=== PATIENT | male | born 1945 | race Caucasian/White ===

== ENCOUNTER 2017-05-04 10:09 | Outpatient (CLI) | payer MEDICARE ==
--- NOTE | 2017-05-04 11:09 | RAD ---
CHEST TWO VIEWS: History: Cough. Comparison: 05-09-13 FINDINGS: Cardiac silhouette and pulmonary vasculature are unremarkable. Elevation of the right hemidiaphragm is stable. There is no confluent airspace consolidation, pneumothorax, or pleural fluid evident. IMPRESSION: No active cardiopulmonary abnormalities are demonstrated. POS: [facility]
== END 2017-05-04 10:10 | disposition home or self-care (01) ==
LOC: SCSRAD 10:09
PROVIDERS: ATTEND Family Medicine
DX: C92.11 Chronic myeloid leukemia, BCR/ABL-positive, in remission (principal); R05 Cough
CPT/HCPCS: 71020

== ENCOUNTER 2021-02-09 10:31 | Outpatient (CLI) | payer MEDICARE ==
[2021-02-10 14:21] LABS: SARS-CoV-2 PCR by NAA Not Detected (NotDetected)
== END 2021-02-09 10:32 | disposition home or self-care (01) ==
LOC: LABBT 10:31
PROVIDERS: ATTEND Neurological Surgery
DX: Z01.812 Encounter for preprocedural laboratory examination (principal); G95.9 Disease of spinal cord, unspecified; Z20.822 Contact with and (suspected) exposure to COVID-19
CPT/HCPCS: U0003; U0005

== ENCOUNTER 2021-03-25 14:51 | Outpatient (CLI) | payer MEDICARE ==
[2021-03-25 16:19] LABS: Hemoglobin 16.3 g/dL (13.5-17.5); Mean Corpuscular HGB CONC 33.1 g/dL (32.0-36.0); Mean Corpuscular Hemoglobin 32.2 pg (27.0-33.0); Mean Corpuscular Volume 97.2 fl (81.2-95.1); Mean Platelet Volume 10.1 fl (7.4-10.4); Platelet Count 302 10x3/uL (150-450); RBC Distribution Width 12.7 % (11.5-14.5); Red Blood Cell (RBC) Count 5.06 10x6/uL (4.32-5.72)
[2021-03-25 16:29] LABS: Anion Gap 14 mmol/L (10-20); BUN (Urea Nitrogen) 27 mg/dL (8.4-25.7); Calc. Creatinine Clearance 0 mL/min (70-130); Calcium 10.1 mg/dL (7.8-10.44); Carbon Dioxide 25 mmol/L (23-31); Chloride 106 mmol/L (98-107); Glucose 94 mg/dL (83-110); Potassium 5.1 mmol/L (3.5-5.1); Sodium 140 mmol/L (136-145)
[2021-03-26 12:27] LABS: SARS-CoV-2 PCR by NAA Not Detected (NotDetected)
== END 2021-03-25 14:52 | disposition home or self-care (01) ==
LOC: LABBT 14:51
PROVIDERS: ATTEND Neurological Surgery
DX: Z01.812 Encounter for preprocedural laboratory examination (principal); M48.04 Spinal stenosis, thoracic region; Z20.822 Contact with and (suspected) exposure to COVID-19
CPT/HCPCS: 80048; 85027; U0003; U0005

== ENCOUNTER 2021-04-03 09:15 | Emergency (ER) | payer MEDICARE ==
[2021-04-03 12:37] LABS: #Basophils 0.1 thou/uL (0.0-0.2); #Eosinphils 0.2 thou/uL (0.0-0.7); #Lymphocytes 2.3 thou/uL (1.20-3.40); #Monocytes 1.6 thou/uL (0.11-0.59); #Neutrophils 9.4 thou/uL (1.40-6.50); %Basophils 0.4 % (0.0-1.0); %Eosinophils 1.8 % (0.0-10.0); %Monocytes 11.8 % (0.0-10.0); Hemoglobin 15.1 g/dL (14.0-18.0); Mean Corpuscular HGB CONC 34.2 g/dL (32.0-36.0); Mean Corpuscular Hemoglobin 33.9 pg (27.0-31.0); Mean Corpuscular Volume 99.2 fL (78.0-98.0); Mean Platelet Volume 8.4 fL (7.4-10.4); Platelet Count 258 thou/uL (130-400); Red Blood Cell (RBC) Count 4.45 mill/uL (4.70-6.10); White Blood Cell (WBC) Count 13.6 thou/uL (4.8-10.8)
[2021-04-03 13:04] LABS: ALT (SGPT) 10 U/L (8-55); AST (SGOT) 23 U/L (5-34); Albumin 3.8 g/dL (3.4-4.8); Alkaline Phosphatase 61 U/L (40-110); Anion Gap 11 mmol/L (10-20); BUN (Urea Nitrogen) 33 mg/dL (8.4-25.7); Bilirubin, Total 1.4 mg/dL (0.2-1.2); Calc. Creatinine Clearance 0 mL/min (70-130); Calcium 9.8 mg/dL (7.8-10.44); Carbon Dioxide 32 mmol/L (23-31); Chloride 99 mmol/L (98-107); Globulin 2.8 g/dL (2.4-3.5); Glucose 96 mg/dL (83-110); Lipase 25 U/L (8-78); Potassium 5.3 mmol/L (3.5-5.1); Protein, Total 6.6 g/dL (5.8-8.1); Sodium 137 mmol/L (136-145)
== END 2021-04-03 15:10 | disposition home or self-care (01) ==
LOC: ERS 09:15
DX: R53.1 Weakness (principal); I25.2 Old myocardial infarction; Z86.73 Personal history of transient ischemic attack (TIA), and cerebral infarction without residual deficits; Z87.891 Personal history of nicotine dependence; Z79.82 Long term (current) use of aspirin; Z79.899 Other long term (current) drug therapy
CPT/HCPCS: 36415; 74018; 80053; 83690; 83880; 85025

== ENCOUNTER 2021-04-09 23:07 | Inpatient (IN) | payer MEDICARE ==
[2021-04-10] MEDS ORDERED: Ondansetron PF 4 MG/2 ML Vial IVP PRN (02:10)
[2021-04-10] MEDS ORDERED: hydrALAZINE 20 MG/ML VIAL SLOW IVP PRN (02:22)
[2021-04-10] MEDS ORDERED: Dexamethasone 4 mg/ml Vial SLOW IVP SCH (02:45)
[2021-04-10] MEDS ORDERED: Aspirin 81 mg Enteric Coated Tablet PO SCH (03:15)
[2021-04-10] MEDS: Sodium Chloride 0.9% 1,000 ML IV SCH ×2 (04:20→17:56)
[2021-04-10 05:59] LABS: Mean Corpuscular HGB CONC 32.6 g/dL (32.0-36.0); Mean Corpuscular Hemoglobin 32.1 pg (27.0-31.0); Mean Corpuscular Volume 98.4 fL (78.0-98.0); Mean Platelet Volume 7.6 fL (7.4-10.4); Platelet Count 287 thou/uL (130-400); RBC Distribution Width 12.1 % (11.5-14.5); Red Blood Cell (RBC) Count 4.69 mill/uL (4.70-6.10); White Blood Cell (WBC) Count 11.6 thou/uL (4.8-10.8)
[2021-04-10 06:02] LABS: Hemoglobin A1c 5.6 % (4.0-6.0)
[2021-04-10 06:18] LABS: Band 2 % (5-11); Eosinophils 2 % (0-10); Lymphocytes 19 % (21-51); MDiff Complete? YES; Monocytes 12 % (0-10); Neutrophil 65 % (42-75)
[2021-04-10 06:21] LABS: ALT (SGPT) 29 U/L (8-55); AST (SGOT) 45 U/L (5-34); Albumin 3.4 g/dL (3.4-4.8); Alkaline Phosphatase 63 U/L (40-110); Anion Gap 11 mmol/L (10-20); BUN (Urea Nitrogen) 19 mg/dL (8.4-25.7); Bilirubin, Total 1.2 mg/dL (0.2-1.2); Calc. Creatinine Clearance 65 mL/min (70-130); Calcium 9.3 mg/dL (7.8-10.44); Carbon Dioxide 26 mmol/L (23-31); Chloride 103 mmol/L (98-107); Globulin 2.6 g/dL (2.4-3.5); Glucose 103 mg/dL (83-110); Potassium 4.1 mmol/L (3.5-5.1); Sodium 136 mmol/L (136-145)
[2021-04-10] MEDS ORDERED: Famotidine/PF 20 mg/2ml Vial SLOW IVP SCH (09:00)
[2021-04-10] MEDS: Dexamethasone 4 mg/ml Vial SLOW IVP SCH ×2 (11:36→18:13)
[2021-04-10] MEDS ORDERED: Clopidogrel Bisulfate 75 MG TAB PO SCH (17:45)
[2021-04-10] MEDS ORDERED: Nitroglycerin 0.4 MG TAB (25 Tab Bottle) SL PRN (18:36)
[2021-04-10] MEDS: Carvedilol 6.25 MG TAB PO SCH (20:56)
[2021-04-10] MEDS: Atorvastatin Calcium 40 MG TAB PO SCH (20:56)
[2021-04-10] MEDS: clonazePAM 0.5 MG TAB PO PRN (20:56)
[2021-04-11] MEDS: Dexamethasone 4 mg/ml Vial SLOW IVP SCH ×4 (01:16→17:48)
[2021-04-11] MEDS: Lorazepam 2 MG/ML VIAL SLOW IVP PRN ×2 (01:17→21:13)
[2021-04-11 05:11] LABS: Anion Gap 13 mmol/L (10-20); BUN (Urea Nitrogen) 24 mg/dL (8.4-25.7); Calc. Creatinine Clearance 64 mL/min (70-130); Calcium 9.7 mg/dL (7.8-10.44); Carbon Dioxide 25 mmol/L (23-31); Chloride 105 mmol/L (98-107); Glucose 166 mg/dL (83-110); Potassium 4.5 mmol/L (3.5-5.1); Sodium 138 mmol/L (136-145)
[2021-04-11] MEDS: Carvedilol 6.25 MG TAB PO SCH ×2 (09:32→21:13)
[2021-04-11] MEDS: Aspirin 81 mg Enteric Coated Tablet PO SCH (09:32)
[2021-04-11] MEDS: Clopidogrel Bisulfate 75 MG TAB PO SCH (09:33)
[2021-04-11] MEDS: Multivitamin W/ Minerals 1 TAB PO SCH (09:34)
[2021-04-11] MEDS: clonazePAM 0.5 MG TAB PO PRN (21:12)
[2021-04-11] MEDS: Atorvastatin Calcium 40 MG TAB PO SCH (21:13)
[2021-04-12] MEDS: Dexamethasone 4 mg/ml Vial SLOW IVP SCH ×4 (00:37→21:09)
[2021-04-12 06:31] LABS: Hemoglobin 14.6 g/dL (14.0-18.0); Mean Corpuscular HGB CONC 33.8 g/dL (32.0-36.0); Mean Corpuscular Hemoglobin 33.4 pg (27.0-31.0); Mean Corpuscular Volume 98.8 fL (78.0-98.0); Mean Platelet Volume 8.2 fL (7.4-10.4); Platelet Count 296 thou/uL (130-400); RBC Distribution Width 12.3 % (11.5-14.5); Red Blood Cell (RBC) Count 4.36 mill/uL (4.70-6.10)
[2021-04-12 06:44] LABS: Anion Gap 14 mmol/L (10-20); BUN (Urea Nitrogen) 34 mg/dL (8.4-25.7); Calc. Creatinine Clearance 55 mL/min (70-130); Calcium 9.3 mg/dL (7.8-10.44); Carbon Dioxide 25 mmol/L (23-31); Cardiac Risk 3.6 (Less than 4.5); Chloride 104 mmol/L (98-107); Cholesterol 150 mg/dl (< 200 Desired); Glucose 127 mg/dL (83-110); HDL Cholesterol 42 mg/dL (>60 Neg Risk); LDL Cholesterol, Calculated 91 mg/dL; Potassium 4.6 mmol/L (3.5-5.1); Sodium 138 mmol/L (136-145); Triglycerides 86 mg/dL (Less than 150)
[2021-04-12 06:47] LABS: Band 5 % (5-11); Lymphocytes 5 % (21-51); MDiff Complete? YES; Monocytes 3 % (0-10); Neutrophil 87 % (42-75)
[2021-04-12] MEDS: Clopidogrel Bisulfate 75 MG TAB PO SCH (08:11)
[2021-04-12] MEDS: Aspirin 81 mg Enteric Coated Tablet PO SCH (08:11)
[2021-04-12] MEDS: Multivitamin W/ Minerals 1 TAB PO SCH (08:11)
[2021-04-12] MEDS: Carvedilol 6.25 MG TAB PO SCH ×2 (08:11→21:09)
[2021-04-12] MEDS ORDERED: Sodium Chloride 0.9% 1,000 ML IV SCH (10:15)
[2021-04-12] MEDS ORDERED: Albuterol Sulfate 2.5 mg/3 ml Neb NEB PRN (13:14)
[2021-04-12] MEDS: Atorvastatin Calcium 40 MG TAB PO SCH (21:09)
[2021-04-12] MEDS: clonazePAM 0.5 MG TAB PO PRN (23:52)
[2021-04-13 06:09] LABS: Mean Corpuscular HGB CONC 33.2 g/dL (32.0-36.0); Mean Corpuscular Volume 99.6 fL (78.0-98.0); Mean Platelet Volume 8.2 fL (7.4-10.4); Platelet Count 301 thou/uL (130-400); RBC Distribution Width 12.3 % (11.5-14.5); Red Blood Cell (RBC) Count 4.22 mill/uL (4.70-6.10); White Blood Cell (WBC) Count 25.9 thou/uL (4.8-10.8)
[2021-04-13 06:24] LABS: Anion Gap 14 mmol/L (10-20); BUN (Urea Nitrogen) 41 mg/dL (8.4-25.7); Calc. Creatinine Clearance 58 mL/min (70-130); Calcium 9.1 mg/dL (7.8-10.44); Carbon Dioxide 24 mmol/L (23-31); Chloride 106 mmol/L (98-107); Glucose 150 mg/dL (83-110); Potassium 4.5 mmol/L (3.5-5.1); Sodium 139 mmol/L (136-145)
[2021-04-13 06:42] LABS: MDiff Complete? YES
[2021-04-13 06:43] LABS: Band 5 % (5-11); Lymphocytes 2 % (21-51); Monocytes 1 % (0-10); Neutrophil 92 % (42-75)
[2021-04-13] MEDS: Aspirin 81 mg Enteric Coated Tablet PO SCH (10:36)
[2021-04-13] MEDS: Clopidogrel Bisulfate 75 MG TAB PO SCH (10:37)
[2021-04-13] MEDS: Multivitamin W/ Minerals 1 TAB PO SCH (10:39)
[2021-04-13] MEDS: Carvedilol 6.25 MG TAB PO SCH ×2 (10:43→21:04)
[2021-04-13] MEDS: Dexamethasone 4 mg/ml Vial SLOW IVP SCH (10:46)
[2021-04-13] MEDS: clonazePAM 0.5 MG TAB PO PRN (21:04)
[2021-04-13] MEDS: Atorvastatin Calcium 40 MG TAB PO SCH (21:05)
[2021-04-13] MEDS: Lorazepam 2 MG/ML VIAL SLOW IVP PRN (23:54)
[2021-04-14] MEDS ORDERED: Nitroglycerin 0.4 MG TAB (25 Tab Bottle) SL PRN (08:30)
[2021-04-14] MEDS: Multivitamin W/ Minerals 1 TAB PO SCH (09:21)
[2021-04-14] MEDS: Lisinopril 10 MG TAB PO SCH ×2 (09:21→20:56)
[2021-04-14] MEDS: Aspirin 81 mg Enteric Coated Tablet PO SCH (09:21)
[2021-04-14] MEDS: Carvedilol 6.25 MG TAB PO SCH ×2 (09:21→20:55)
[2021-04-14] MEDS: Clopidogrel Bisulfate 75 MG TAB PO SCH (09:21)
[2021-04-14] MEDS ORDERED: Non-Formulary Item 1 EACH (Carvedilol [Coreg] 12.5 MG Tab) PO SCH (17:00)
[2021-04-14] MEDS: Atorvastatin Calcium 40 MG TAB PO SCH (20:55)
[2021-04-14] MEDS ORDERED: Mirtazapine 15 MG TAB PO SCH (21:00)
[2021-04-15 06:00] LABS: #Eosinphils 0.1 thou/uL (0.0-0.7); #Lymphocytes 2.1 thou/uL (1.20-3.40); #Monocytes 2.1 thou/uL (0.11-0.59); #Neutrophils 11.4 thou/uL (1.40-6.50); %Basophils 0.1 % (0.0-1.0); %Eosinophils 0.7 % (0.0-10.0); %Lymphocytes 13.7 % (21.0-51.0); %Monocytes 13.1 % (0.0-10.0); %Neutrophils 72.4 % (42.0-75.0); Hemoglobin 14.4 g/dL (14.0-18.0); Mean Corpuscular Hemoglobin 31.6 pg (27.0-31.0); Mean Corpuscular Volume 98.8 fL (78.0-98.0); Mean Platelet Volume 8.4 fL (7.4-10.4); Platelet Count 283 thou/uL (130-400); RBC Distribution Width 12.4 % (11.5-14.5); Red Blood Cell (RBC) Count 4.56 mill/uL (4.70-6.10); White Blood Cell (WBC) Count 15.7 thou/uL (4.8-10.8)
[2021-04-15 06:27] LABS: Troponin I 0.018 ng/mL (< 0.028)
[2021-04-15 06:29] LABS: ALT (SGPT) 13 U/L (8-55); AST (SGOT) 12 U/L (5-34); Albumin 3.1 g/dL (3.4-4.8); Alkaline Phosphatase 51 U/L (40-110); Anion Gap 12 mmol/L (10-20); BUN (Urea Nitrogen) 44 mg/dL (8.4-25.7); Bilirubin, Total 1.3 mg/dL (0.2-1.2); Calc. Creatinine Clearance 56 mL/min (70-130); Calcium 8.7 mg/dL (7.8-10.44); Carbon Dioxide 26 mmol/L (23-31); Chloride 106 mmol/L (98-107); Glucose 87 mg/dL (83-110); Magnesium 2.1 mg/dL (1.6-2.6); Potassium 4.6 mmol/L (3.5-5.1); Protein, Total 5.1 g/dL (5.8-8.1); Sodium 139 mmol/L (136-145)
[2021-04-15] MEDS: Aspirin 81 mg Enteric Coated Tablet PO SCH (10:49)
[2021-04-15] MEDS: Carvedilol 6.25 MG TAB PO SCH (10:51)
[2021-04-15] MEDS: Clopidogrel Bisulfate 75 MG TAB PO SCH (10:51)
[2021-04-15] MEDS: Lisinopril 10 MG TAB PO SCH (10:55)
[2021-04-15] MEDS: Multivitamin W/ Minerals 1 TAB PO SCH (10:56)
[2021-04-15 13:20] VITALS: BMI 27.6
[2021-04-15 15:43] VITALS: BP 151/94; TEMP 98.9
== END 2021-04-15 20:29 | DRG 65 ==
LOC: 3SE 04-10 00:39
PROVIDERS: ADMIT Internal Medicine; ATTEND Internal Medicine
DX: I63.89 Other cerebral infarction (principal); N17.9 Acute kidney failure, unspecified; C92.11 Chronic myeloid leukemia, BCR/ABL-positive, in remission; G81.94 Hemiplegia, unspecified affecting left nondominant side; Z20.822 Contact with and (suspected) exposure to COVID-19; R47.1 Dysarthria and anarthria; M48.04 Spinal stenosis, thoracic region; Z88.7 Allergy status to serum and vaccine; Z90.49 Acquired absence of other specified parts of digestive tract; I25.2 Old myocardial infarction; Z79.82 Long term (current) use of aspirin; Z79.899 Other long term (current) drug therapy; Z87.891 Personal history of nicotine dependence; N18.31 Chronic kidney disease, stage 3a; I12.9 Hypertensive chronic kidney disease with stage 1 through stage 4 chronic kidney disease, or unspecified chronic kidney disease; E78.5 Hyperlipidemia, unspecified; K21.9 Gastro-esophageal reflux disease without esophagitis; G47.00 Insomnia, unspecified; H53.2 Diplopia; R29.711 NIHSS score 11; R47.01 Aphasia; D72.829 Elevated white blood cell count, unspecified
CPT/HCPCS: 36415; 51701; 70450; 70496; 70498; 70551; 71045; 72125; 72128; 72131; 72146; 80048; 80053; 80061; 81003; 83036; 83735; 84484; 85007; 85025; 85027; 85610; 85730; 93005; 93010; 93306; 94640; 94760; 96374; J1100; J2060; J7050; J7611; S0028; U0002

== ENCOUNTER 2022-01-31 07:49 | Inpatient (IN) | payer MEDICARE ==
[2022-01-31] MEDS ORDERED: Nitroglycerin 2% Ointment 1 INCH/1 GM Packet ONE (08:11)
[2022-01-31 08:15] LABS: #Basophils 0.1 thou/uL (0.0-0.2); #Eosinphils 0.4 thou/uL (0.0-0.7); #Monocytes 1.2 thou/uL (0.11-0.59); #Neutrophils 6.9 thou/uL (1.40-6.50); %Basophils 0.6 % (0.0-1.0); %Eosinophils 3.8 % (0.0-10.0); %Lymphocytes 25.6 % (21.0-51.0); %Neutrophils 60.1 % (42.0-75.0); Hemoglobin 13.6 g/dL (14.0-18.0); Mean Corpuscular HGB CONC 32.7 g/dL (32.0-36.0); Mean Corpuscular Hemoglobin 32.9 pg (27.0-31.0); Mean Platelet Volume 8.1 fL (7.4-10.4); Platelet Count 333 thou/uL (130-400); Red Blood Cell (RBC) Count 4.13 mill/uL (4.70-6.10); White Blood Cell (WBC) Count 11.5 thou/uL (4.8-10.8)
[2022-01-31 08:36] LABS: ALT (SGPT) 15 U/L (8-55); AST (SGOT) 15 U/L (5-34); Albumin 3.5 g/dL (3.4-4.8); Alkaline Phosphatase 85 U/L (40-110); Anion Gap 13 mmol/L (10-20); BUN (Urea Nitrogen) 26 mg/dL (8.4-25.7); Bilirubin, Total 0.8 mg/dL (0.2-1.2); CK (CPK) 32 U/L (30-200); Calc. Creatinine Clearance 0 mL/min (70-130); Calcium 9.4 mg/dL (7.8-10.44); Carbon Dioxide 25 mmol/L (23-31); Chloride 108 mmol/L (98-107); Estimated GFR 52; Globulin 2.8 g/dL (2.4-3.5); Glucose 96 mg/dL (83-110); Lipase 36 U/L (8-78); Potassium 4.3 mmol/L (3.5-5.1); Protein, Total 6.3 g/dL (5.8-8.1); Sodium 142 mmol/L (136-145)
[2022-01-31] MEDS ORDERED: Aspirin 325 MG TAB PO ONE (10:28)
[2022-01-31] MEDS ORDERED: Nitroglycerin 0.4 MG TAB (25 Tab Bottle) SL PRN ×2 (10:28→17:09)
[2022-01-31] MEDS ORDERED: Ondansetron ODT 4 MG TAB PO PRN (10:30)
[2022-01-31] MEDS ORDERED: Acetaminophen 325 MG TAB PO PRN (10:30)
[2022-01-31] MEDS ORDERED: Ondansetron PF 4 MG/2 ML Vial IVP PRN (10:30)
[2022-01-31] MEDS ORDERED: Aspirin 325 MG TAB ONE (10:34)
[2022-01-31 11:17] LABS: Troponin I Less than 0.010 ng/mL (< 0.028)
[2022-01-31 12:13] VITALS: BMI 24.4
[2022-01-31] MEDS: Sodium Chloride 0.9% 1,000 ML IV SCH (12:48)
[2022-01-31 14:34] LABS: SARS-CoV-2 NAA Rapid Test Not Detected (NotDetected)
[2022-01-31 15:04] LABS: Troponin I 0.013 ng/mL (< 0.028)
[2022-01-31 15:27] LABS: Bilirubin Negative (Negative); Blood, Urine Negative (Negative); Glucose, Urine (Dipstick) Normal (Negative); Ketone, Urine Negative (Negative); Leukocyte 500 Leu/uL (Negative); Nitrite 2+ (Negative); Protein, Urine (Dipstick) Negative (Neg-Trace); Specific Gravity, Urine 1.014 (1.002-1.036); Urobilinogen Normal mg/dL (Less than 2); pH, Urine 5.5 (5.0-9.0)
[2022-01-31 15:28] LABS: Clarity Cloudy (Clear)
[2022-01-31 15:38] LABS: Bacteria/HPF 4+ HPF (None Seen); RBC/HPF None Seen HPF (0-3); Squamous Epithelial 0-3 HPF (0-3); WBC/HPF 21-50 HPF (0-3)
[2022-01-31 15:40] LABS: Urine Culture Reflex Yes Yes
[2022-01-31] MEDS: cefTRIAXone\\ROCEPHIN 1 GM in Sodium Chloride 0.9% 100 ML IVPB SCH (16:47)
[2022-01-31] MEDS ORDERED: Albuterol Sulfate 2.5 mg/3 ml Neb NEB PRN (17:09)
[2022-01-31] MEDS ORDERED: Cyclobenzaprine 10 MG TAB PO PRN (17:09)
[2022-01-31] MEDS: Lisinopril 10 MG TAB PO SCH (20:50)
[2022-01-31] MEDS: busPIRone HCl 5 MG TAB PO SCH (20:50)
[2022-01-31] MEDS: Mirtazapine 15 MG TAB PO SCH (20:50)
[2022-01-31] MEDS: Atorvastatin Calcium 40 MG TAB PO SCH (20:51)
[2022-01-31] MEDS: Tamsulosin HCl 0.4 MG CAP PO SCH (20:51)
[2022-02-01] MEDS: Labetalol HCl 100 MG/20 ML VIAL SLOW IVP PRN (00:33)
[2022-02-01] MEDS: Sodium Chloride 0.9% 1,000 ML IV SCH (00:34)
[2022-02-01 04:49] LABS: #Basophils 0.1 thou/uL (0.0-0.2); #Eosinphils 0.5 thou/uL (0.0-0.7); #Lymphocytes 3.1 thou/uL (1.20-3.40); #Monocytes 1.4 thou/uL (0.11-0.59); #Neutrophils 7.3 thou/uL (1.40-6.50); %Basophils 0.5 % (0.0-1.0); %Eosinophils 3.8 % (0.0-10.0); %Lymphocytes 25.1 % (21.0-51.0); %Monocytes 11.2 % (0.0-10.0); %Neutrophils 59.4 % (42.0-75.0); Hemoglobin 13.2 g/dL (14.0-18.0); Mean Corpuscular HGB CONC 31.2 g/dL (32.0-36.0); Mean Platelet Volume 8.1 fL (7.4-10.4); Platelet Count 323 thou/uL (130-400); RBC Distribution Width 12.9 % (11.5-14.5); Red Blood Cell (RBC) Count 4.12 mill/uL (4.70-6.10); White Blood Cell (WBC) Count 12.3 thou/uL (4.8-10.8)
[2022-02-01 05:06] LABS: Anion Gap 12 mmol/L (10-20); BUN (Urea Nitrogen) 25 mg/dL (8.4-25.7); Calc. Creatinine Clearance 60 mL/min (70-130); Calcium 9.2 mg/dL (7.8-10.44); Carbon Dioxide 23 mmol/L (23-31); Chloride 109 mmol/L (98-107); Estimated GFR 64; Glucose 89 mg/dL (83-110); Potassium 4.4 mmol/L (3.5-5.1); Sodium 140 mmol/L (136-145)
[2022-02-01] MEDS ORDERED: Aspirin Chewable 81 MG TAB PO SCH (09:00)
[2022-02-01] MEDS: Carvedilol 6.25 MG TAB PO SCH ×2 (09:33→16:25)
[2022-02-01] MEDS: Multivit, Therapeutic 1 TAB PO SCH (09:34)
[2022-02-01] MEDS: Clopidogrel Bisulfate 75 MG TAB PO SCH (09:34)
[2022-02-01] MEDS: Aspirin 81 mg Enteric Coated Tablet PO SCH (09:34)
[2022-02-01] MEDS: busPIRone HCl 5 MG TAB PO SCH ×2 (09:34→20:32)
[2022-02-01] MEDS: Lisinopril 10 MG TAB PO SCH ×2 (09:34→20:32)
[2022-02-01] MEDS: Spironolactone 25 MG TAB PO SCH (12:02)
[2022-02-01] MEDS: Hydrochlorothiazide 25 MG TAB PO SCH (12:02)
[2022-02-01] MEDS: cefTRIAXone\\ROCEPHIN 1 GM in Sodium Chloride 0.9% 100 ML IVPB SCH (16:25)
[2022-02-01] MEDS: Atorvastatin Calcium 40 MG TAB PO SCH (20:31)
[2022-02-01] MEDS: Mirtazapine 15 MG TAB PO SCH (20:32)
[2022-02-01] MEDS: Tamsulosin HCl 0.4 MG CAP PO SCH (20:33)
[2022-02-01] MEDS: Lorazepam 2 MG/ML VIAL SLOW IVP PRN (22:02)
[2022-02-02 04:24] LABS: #Basophils 0.1 thou/uL (0.0-0.2); #Eosinphils 0.3 thou/uL (0.0-0.7); #Lymphocytes 3.5 thou/uL (1.20-3.40); #Monocytes 1.1 thou/uL (0.11-0.59); #Neutrophils 7.4 thou/uL (1.40-6.50); %Basophils 0.5 % (0.0-1.0); %Eosinophils 2.5 % (0.0-10.0); %Lymphocytes 28.4 % (21.0-51.0); %Monocytes 8.9 % (0.0-10.0); %Neutrophils 59.8 % (42.0-75.0); Hemoglobin 13.3 g/dL (14.0-18.0); Mean Corpuscular HGB CONC 31.3 g/dL (32.0-36.0); Mean Corpuscular Hemoglobin 32.1 pg (27.0-31.0); Mean Platelet Volume 8.3 fL (7.4-10.4); Platelet Count 310 thou/uL (130-400); RBC Distribution Width 12.9 % (11.5-14.5); Red Blood Cell (RBC) Count 4.12 mill/uL (4.70-6.10); White Blood Cell (WBC) Count 12.4 thou/uL (4.8-10.8)
[2022-02-02 04:51] LABS: Anion Gap 12 mmol/L (10-20); BUN (Urea Nitrogen) 23 mg/dL (8.4-25.7); Calc. Creatinine Clearance 65 mL/min (70-130); Calcium 9.2 mg/dL (7.8-10.44); Carbon Dioxide 25 mmol/L (23-31); Chloride 107 mmol/L (98-107); Estimated GFR 70; Glucose 89 mg/dL (83-110); Potassium 4.2 mmol/L (3.5-5.1); Sodium 140 mmol/L (136-145)
[2022-02-02] MEDS: Labetalol HCl 100 MG/20 ML VIAL SLOW IVP PRN (05:18)
[2022-02-02] MEDS ORDERED: hydrALAZINE 20 MG/ML VIAL SLOW IVP PRN (06:17)
[2022-02-02] MEDS: Clopidogrel Bisulfate 75 MG TAB PO SCH (11:39)
[2022-02-02] MEDS: busPIRone HCl 5 MG TAB PO SCH ×2 (11:39→21:15)
[2022-02-02] MEDS: Lisinopril 10 MG TAB PO SCH ×2 (11:39→21:15)
[2022-02-02] MEDS: Aspirin 81 mg Enteric Coated Tablet PO SCH (11:40)
[2022-02-02] MEDS: Carvedilol 6.25 MG TAB PO SCH ×2 (11:40→19:05)
[2022-02-02] MEDS: Multivit, Therapeutic 1 TAB PO SCH (11:40)
[2022-02-02] MEDS ORDERED: CATH Communication Order-Pharmacy FS SCH (13:30)
[2022-02-02] MEDS: cefTRIAXone\\ROCEPHIN 1 GM in Sodium Chloride 0.9% 100 ML IVPB SCH (15:37)
[2022-02-02] MEDS: Hydrochlorothiazide 25 MG TAB PO SCH (15:38)
[2022-02-02] MEDS: Spironolactone 25 MG TAB PO SCH (17:09)
[2022-02-02] MEDS: Atorvastatin Calcium 40 MG TAB PO SCH (21:15)
[2022-02-02] MEDS: Tamsulosin HCl 0.4 MG CAP PO SCH (21:15)
[2022-02-02] MEDS: Mirtazapine 15 MG TAB PO SCH (21:16)
[2022-02-02] MEDS: Lorazepam 2 MG/ML VIAL SLOW IVP PRN (21:16)
[2022-02-03] MEDS: Lisinopril 10 MG TAB PO SCH (05:40)
[2022-02-03] MEDS: busPIRone HCl 5 MG TAB PO SCH (05:41)
[2022-02-03] MEDS: Carvedilol 6.25 MG TAB PO SCH ×2 (05:41→16:46)
[2022-02-03] MEDS: Clopidogrel Bisulfate 75 MG TAB PO SCH (05:42)
[2022-02-03] MEDS: Multivit, Therapeutic 1 TAB PO SCH (05:42)
[2022-02-03] MEDS: Aspirin 81 mg Enteric Coated Tablet PO SCH (05:42)
[2022-02-03] MEDS ORDERED: Sodium Chloride 0.9% 1,000 ML IV SCH (06:00)
[2022-02-03] MEDS ORDERED: Lidocaine 1% (PF) 30 ML VIAL ONE (07:51)
[2022-02-03] MEDS ORDERED: Fentanyl 100 MCG/2 ML VIAL ONE (09:08)
[2022-02-03] MEDS ORDERED: Midazolam HCl 2 mg/2 ml Vial ONE (09:08)
[2022-02-03] MEDS ORDERED: Iopamidol 370 76% 100 ML VIAL ONE (09:31)
[2022-02-03] MEDS ORDERED: Sodium Chloride 0.9% 200 ML IV PRN (10:03)
[2022-02-03] MEDS ORDERED: Nitroglycerin 0.4 MG TAB (25 Tab Bottle) SL PRN (10:03)
[2022-02-03] MEDS ORDERED: Acetaminophen/Codeine 30-300mg Tablet PO PRN (10:03)
[2022-02-03] MEDS: Hydrochlorothiazide 25 MG TAB PO SCH (12:11)
[2022-02-03] MEDS: cefTRIAXone\\ROCEPHIN 1 GM in Sodium Chloride 0.9% 100 ML IVPB SCH (16:46)
[2022-02-03 19:16] VITALS: BP 142/72; TEMP 97.7
== END 2022-02-03 19:28 | DRG 287 ==
LOC: ERS 07:49 → ERHOLD 09:43 → 2NO 11:41 → OBSVTOIN 02-02 15:54
PROVIDERS: ADMIT Internal Medicine; ATTEND Internal Medicine
PROC: 4A023N7 Measurement of Cardiac Sampling and Pressure, Left Heart, Percutaneous Approach (ICD-10-PCS; principal; 2022-02-03)
PROC: B2111ZZ Fluoroscopy of Multiple Coronary Arteries using Low Osmolar Contrast (ICD-10-PCS; 2022-02-03)
PROC: B2151ZZ Fluoroscopy of Left Heart using Low Osmolar Contrast (ICD-10-PCS; 2022-02-03)
DX: T82.855A Stenosis of coronary artery stent, initial encounter (principal); Z20.822 Contact with and (suspected) exposure to COVID-19; Z66 Do not resuscitate; N39.0 Urinary tract infection, site not specified; C95.91 Leukemia, unspecified, in remission; N17.9 Acute kidney failure, unspecified; Y83.1 Surgical operation with implant of artificial internal device as the cause of abnormal reaction of the patient, or of later complication, without mention of misadventure at the time of the procedure; I25.82 Chronic total occlusion of coronary artery; I25.10 Atherosclerotic heart disease of native coronary artery without angina pectoris; F40.240 Claustrophobia; B96.1 Klebsiella pneumoniae [K. pneumoniae] as the cause of diseases classified elsewhere; K21.9 Gastro-esophageal reflux disease without esophagitis; E78.2 Mixed hyperlipidemia; N18.30 Chronic kidney disease, stage 3 unspecified; I12.9 Hypertensive chronic kidney disease with stage 1 through stage 4 chronic kidney disease, or unspecified chronic kidney disease; E78.5 Hyperlipidemia, unspecified; Z96.652 Presence of left artificial knee joint; I73.9 Peripheral vascular disease, unspecified; I45.10 Unspecified right bundle-branch block; F41.9 Anxiety disorder, unspecified; D63.1 Anemia in chronic kidney disease; Z95.5 Presence of coronary angioplasty implant and graft; Z86.73 Personal history of transient ischemic attack (TIA), and cerebral infarction without residual deficits; Z88.7 Allergy status to serum and vaccine; Z79.899 Other long term (current) drug therapy; Z79.02 Long term (current) use of antithrombotics/antiplatelets; Z79.82 Long term (current) use of aspirin; Z95.828 Presence of other vascular implants and grafts; Z90.5 Acquired absence of kidney; Z87.891 Personal history of nicotine dependence; I25.2 Old myocardial infarction
CPT/HCPCS: 36415; 71045; 78452; 80048; 80053; 81001; 82550; 83690; 83735; 83880; 84484; 85025; 87077; 87086; 87186; 93005; 93454; 94760; 96375; 96376; 99152; 99153; A9500; C1894; G0378; J0360; J0696; J2001; J2060; J2250; J3010; J3490; J7050; Q9967; U0002

== ENCOUNTER 2023-05-22 15:19 | Emergency (ER) | payer MEDICARE ==
[2023-05-22 16:03] LABS: #Basophils 0.1 thou/uL (0.0-0.2); #Eosinphils 0.3 thou/uL (0.0-0.7); #Monocytes 1.1 thou/uL (0.11-0.59); #Neutrophils 5.5 thou/uL (1.40-6.50); %Basophils 0.7 % (0.0-1.0); %Eosinophils 2.9 % (0.0-10.0); %Lymphocytes 24.3 % (21.0-51.0); %Monocytes 11.8 % (0.0-10.0); %Neutrophils 59.8 % (42.0-75.0); Hematocrit 44.7 % (42.0-52.0); Hemoglobin 14.9 g/dL (14.0-18.0); Mean Corpuscular HGB CONC 33.3 g/dL (32.0-36.0); Mean Corpuscular Hemoglobin 32.2 pg (27.0-31.0); Mean Corpuscular Volume 96.5 fl (78.0-98.0); Mean Platelet Volume 10.3 fL (7.4-10.4); Platelet Count 319 10x3/uL (130-400); RBC Distribution Width 14.7 % (11.5-14.5); Red Blood Cell (RBC) Count 4.63 mill/uL (4.70-6.10); White Blood Cell (WBC) Count 9.2 10x3/uL (4.8-10.8)
[2023-05-22 16:28] LABS: ALT (SGPT) 16 U/L (8-55); AST (SGOT) 18 U/L (5-34); Alkaline Phosphatase 87 U/L (40-110); Anion Gap 18 mmol/L (10-20); BUN (Urea Nitrogen) 29 mg/dL (8.4-25.7); Bilirubin, Total 0.8 mg/dL (0.2-1.2); Calc. Creatinine Clearance 0 mL/min (70-130); Calcium 8.9 mg/dL (7.8-10.44); Carbon Dioxide 21 mmol/L (23-31); Chloride 103 mmol/L (98-107); Estimated GFR 53; Globulin 2.1 g/dL (2.4-3.5); Glucose 149 mg/dL (83-110); Potassium 4.1 mmol/L (3.5-5.1); Protein, Total 6.1 g/dL (5.8-8.1); Sodium 138 mmol/L (136-145)
[2023-05-22 17:24] LABS: Bacteria/HPF 3+ HPF (None Seen); Bilirubin Negative (Negative); Blood, Urine Negative (Negative); CAUTI Indications for Culture Alt mental st,lethar; Clarity Turbid (Clear); Glucose, Urine (Dipstick) Normal (Negative); Ketone, Urine Negative (Negative); Leukocyte 500 Leu/uL (Negative); Nitrite Negative (Negative); Protein, Urine (Dipstick) Negative (Neg-Trace); RBC/HPF None Seen HPF (0-3); Specific Gravity, Urine 1.011 (1.002-1.036); Squamous Epithelial None Seen HPF (0-3); Urobilinogen Normal mg/dL (Less than 2); WBC/HPF Greater than 50 HPF (0-3); pH, Urine 5.5 (5.0-9.0)
[2023-05-22 17:26] LABS: Urine Culture Reflex Yes Yes
[2023-05-22] MEDS ORDERED: cefTRIAXone (ROCEPHIN) 1 GM VIAL ONE (17:38)
[2023-05-22] MEDS ORDERED: Sodium Chloride 0.9% 100 ML ONE (17:38)
== END 2023-05-22 19:40 | disposition home or self-care (01) ==
LOC: ERS 15:19
DX: N39.0 Urinary tract infection, site not specified (principal); I10 Essential (primary) hypertension; I25.2 Old myocardial infarction; Z86.73 Personal history of transient ischemic attack (TIA), and cerebral infarction without residual deficits; Z79.82 Long term (current) use of aspirin; Z79.899 Other long term (current) drug therapy
CPT/HCPCS: 36415; 71045; 80053; 81001; 83605; 84484; 85025; 87040; 87077; 87086; 87186; 93005; 96365; J0696; J3490

== ENCOUNTER 2023-09-22 18:34 | Observation (INO) | payer MEDICARE, MEDICAID ==
[2023-09-22 19:06] LABS: #Basophils 0.1 thou/uL (0.0-0.2); #Eosinphils 0.4 thou/uL (0.0-0.7); #Monocytes 1.3 thou/uL (0.11-0.59); #Neutrophils 6.1 thou/uL (1.40-6.50); %Basophils 0.6 % (0.0-1.0); %Eosinophils 3.6 % (0.0-10.0); %Monocytes 12.2 % (0.0-10.0); %Neutrophils 57.1 % (42.0-75.0); Hematocrit 42.7 % (42.0-52.0); Hemoglobin 14.5 g/dL (14.0-18.0); Mean Corpuscular Hemoglobin 32.1 pg (27.0-31.0); Mean Corpuscular Volume 94.5 fl (78.0-98.0); Mean Platelet Volume 10.1 fL (7.4-10.4); Platelet Count 307 10x3/uL (130-400); RBC Distribution Width 14.9 % (11.5-14.5); Red Blood Cell (RBC) Count 4.52 mill/uL (4.70-6.10); White Blood Cell (WBC) Count 10.7 10x3/uL (4.8-10.8)
[2023-09-22] MEDS ORDERED: Nitroglycerin 0.4 MG TAB (25 Tab Bottle) ONE (19:13)
[2023-09-22] MEDS ORDERED: Nitroglycerin 0.4 MG TAB 1 EACH ONE ×2 (19:14→19:15)
[2023-09-22 19:31] LABS: ALT (SGPT) 24 U/L (8-55); AST (SGOT) 22 U/L (5-34); Albumin 3.8 g/dL (3.4-4.8); Alkaline Phosphatase 82 U/L (40-110); Anion Gap 15 mmol/L (10-20); BUN (Urea Nitrogen) 47 mg/dL (8.4-25.7); Bilirubin, Total 0.9 mg/dL (0.2-1.2); Calc. Creatinine Clearance 0 mL/min (70-130); Calcium 9.1 mg/dL (7.8-10.44); Carbon Dioxide 24 mmol/L (23-31); Chloride 105 mmol/L (98-107); Estimated GFR 41; Globulin 2.4 g/dL (2.4-3.5); Glucose 105 mg/dL (83-110); Potassium 4.7 mmol/L (3.5-5.1); Protein, Total 6.2 g/dL (5.8-8.1); Sodium 139 mmol/L (136-145)
[2023-09-22 19:33] LABS: Troponin I Less than 0.010 ng/mL (< 0.028)
[2023-09-22] MEDS ORDERED: Albuterol 2.5 MG (3 mL) NEB NEB PRN (20:50)
[2023-09-22] MEDS ORDERED: Cyclobenzaprine 10 MG TAB PO PRN (20:50)
[2023-09-22] MEDS ORDERED: Nitroglycerin 0.4 MG TAB (25 Tab Bottle) SL PRN (20:50)
[2023-09-22] MEDS ORDERED: Heparin 5,000 UNITS/ML VIAL ONE (22:40)
[2023-09-22] MEDS ORDERED: Lisinopril 10 MG TAB ONE (22:40)
[2023-09-22] MEDS ORDERED: Polyethylene Glycol 3350 17 GM Packet ONE (22:41)
[2023-09-22 22:44] LABS: Troponin I Less than 0.010 ng/mL (< 0.028)
[2023-09-22] MEDS: Lisinopril 10 MG TAB PO SCH (22:50)
[2023-09-22] MEDS: Polyethylene Glycol 3350 17 GM Packet PO SCH (22:50)
[2023-09-22] MEDS: Mirtazapine 15 MG TAB PO SCH (23:10)
[2023-09-22] MEDS: Docusate 100 MG CAP PO SCH (23:10)
[2023-09-23] MEDS: Heparin 5,000 UNITS/ML VIAL SC SCH (01:58)
[2023-09-23 06:32] LABS: #Basophils 0.1 thou/uL (0.0-0.2); #Eosinphils 0.4 thou/uL (0.0-0.7); #Monocytes 1.2 thou/uL (0.11-0.59); #Neutrophils 6.2 thou/uL (1.40-6.50); %Basophils 0.5 % (0.0-1.0); %Eosinophils 3.5 % (0.0-10.0); %Lymphocytes 23.7 % (21.0-51.0); %Neutrophils 59.7 % (42.0-75.0); Hematocrit 43.3 % (42.0-52.0); Hemoglobin 14.2 g/dL (14.0-18.0); Mean Corpuscular HGB CONC 32.8 g/dL (32.0-36.0); Mean Corpuscular Hemoglobin 31.5 pg (27.0-31.0); Mean Platelet Volume 10.1 fL (7.4-10.4); Platelet Count 315 10x3/uL (130-400); RBC Distribution Width 15.3 % (11.5-14.5); Red Blood Cell (RBC) Count 4.51 mill/uL (4.70-6.10); White Blood Cell (WBC) Count 10.3 10x3/uL (4.8-10.8)
[2023-09-23 07:07] LABS: Anion Gap 13 mmol/L (10-20); BUN (Urea Nitrogen) 45 mg/dL (8.4-25.7); Calc. Creatinine Clearance 45 mL/min (70-130); Calcium 9.1 mg/dL (7.8-10.44); Carbon Dioxide 25 mmol/L (23-31); Cardiac Risk 4.1 (Less than 4.5); Chloride 107 mmol/L (98-107); Cholesterol 116 mg/dl (< 200 Desired); Estimated GFR 43; Glucose 116 mg/dL (83-110); HDL Cholesterol 28 mg/dL (>60 Neg Risk); LDL Cholesterol, Calculated 68 mg/dL; Potassium 4.6 mmol/L (3.5-5.1); Sodium 140 mmol/L (136-145); Triglycerides 102 mg/dL (Less than 150); Troponin I Less than 0.010 ng/mL (< 0.028)
[2023-09-23] MEDS: busPIRone HCl 5 MG TAB PO SCH (08:55)
[2023-09-23] MEDS: Carvedilol 6.25 MG TAB PO SCH (08:55)
[2023-09-23] MEDS: Aspirin 81 mg Enteric Coated Tablet PO SCH (08:55)
[2023-09-23] MEDS: Ranolazine ER 500 MG TAB PO SCH (08:55)
[2023-09-23] MEDS: Clopidogrel Bisulfate 75 MG TAB PO SCH (08:56)
[2023-09-23 09:22] VITALS: BMI 25.8
[2023-09-23] MEDS: Spironolactone 25 MG TAB PO SCH (11:40)
[2023-09-23] MEDS: Hydrochlorothiazide 25 MG TAB PO SCH (11:41)
[2023-09-23] MEDS: Isosorbide Mononitrate 30 MG ER.TAB PO SCH (14:18)
[2023-09-23 15:58] VITALS: TEMP 97.6
[2023-09-23 17:02] VITALS: BP 120/72
[2023-09-23] MEDS ORDERED: Non-Formulary Item 1 EACH (Mirtazapine [Mirtazapine] 7.5 MG Tablet) PO SCH (21:00)
[2023-09-23] MEDS ORDERED: Atorvastatin Calcium 40 MG TAB PO SCH (21:00)
[2023-09-23] MEDS ORDERED: Baclofen 10 MG TAB PO SCH (21:00)
== END 2023-09-23 20:25 ==
LOC: ERS 18:34 → ERHOLD 21:03 → 2NO 09-23 00:25
PROVIDERS: ADMIT Internal Medicine; ATTEND Internal Medicine
DX: R07.89 Other chest pain (principal); I73.9 Peripheral vascular disease, unspecified; C64.9 Malignant neoplasm of unspecified kidney, except renal pelvis; Z90.5 Acquired absence of kidney; I45.10 Unspecified right bundle-branch block; I50.30 Unspecified diastolic (congestive) heart failure; I34.0 Nonrheumatic mitral (valve) insufficiency; Z90.81 Acquired absence of spleen; Z96.652 Presence of left artificial knee joint; Z98.890 Other specified postprocedural states; Z87.891 Personal history of nicotine dependence; Z79.82 Long term (current) use of aspirin; Z79.899 Other long term (current) drug therapy
CPT/HCPCS: 36415; 71045; 80048; 80053; 80061; 83690; 83880; 84484; 85025; 93005; 93306; 94760; 96372; G0378; J1644